=== PATIENT | female | born 1985 | race American Indian/Alaskan Native ===

== ENCOUNTER 2016-08-22 21:24 | Emergency (ER) | payer MEDICAID ==
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
[2016-08-23] MEDS ORDERED: TORADOL IM ONE (02:09)
[2016-08-23 03:13] VITALS: BP 120/64
== END 2016-08-23 03:18 | disposition home or self-care (01) ==
LOC: ED 21:24
DX: M54.2 Cervicalgia (principal); M54.9 Dorsalgia, unspecified; Z88.6 Allergy status to analgesic agent; V89.2XXA Person injured in unspecified motor-vehicle accident, traffic, initial encounter; Y93.89 Activity, other specified; Y99.8 Other external cause status; Y92.89 Other specified places as the place of occurrence of the external cause
CPT/HCPCS: 81025; 96372; 99282; J1885

== ENCOUNTER 2019-03-15 13:36 | Outpatient (CLI) | payer MEDICAID ==
[2019-03-15] MEDS ORDERED: LACTATED RINGERS 1,000 ML IV ONE (15:30)
--- NOTE | 2019-03-15 15:43 | Ultrasound Report ---
Limited OB ultrasound Biophysical profile INDICATION: Nonreactive NST. Evaluate RAYSHAWN. COMPARISON: None available. FINDINGS: A single live intrauterine is seen in cephalic presentation with a heart rate of 152 bpm. T he amniotic fluid index is normal, measuring 7.9 cm. The biophysical profile is 8/8. IMPRESSION: Single live intrauterine with a normal RAYSHAWN of 7.9 cm and biophysical profile of 8/8. Signer Name: Trav Jeter MD Signed: 03/15/2019 3:39 PM Workstation Name: [id number]
[2019-03-15 16:09] VITALS: BP 128/72
--- NOTE | 2019-03-15 17:10 | Progress Note ---
Assessment and Plan A: at 38 1/7 weeks gestation. No evidence of membrane rupture. Not in active labor. Normal BPP and RAYSHAWN. Active movement noted during US, during exam, and reported by patient. P: Consulted with Dr. Villar re: this patient. Dr. Villar states it is OK to discharge patient home and have her follow up here in L&D on Saturday03/17/19 for repeat BPP/RAYSHAWN. Hydrated patient with 1 liter of LR IV. Discussed with patient need to perform daily movement counting at home; technique for daily movement counting discussed. Advised patient she must come in right away if decrease in movements. Signs of labor and warning signs discussed in detail with patient. Encouraged patient to keep her scheduled follow up at [facility]. Patient voiced understanding of all instructions. Subjective - Subjective Date of service: 03/15/19 Principal diagnosis: R/O ROM Interval history: 33 year old presents at 38 weeks, 1 day gestation to rule out leaking of water. Patient states she has had some sort of discharge present for the past few days which made her underwear feel moist. She denies any gush or trickle. Pt. denies vaginal bleeding. Pt. states baby has been moving well. She has not been counting movements daily. Patient denies regular contractions. She denies falls or abdominal trauma. Patient sees [facility] for her care and she states she has a follow up visit this week. Patient reports: movement normal, no vaginal bleeding, no contractions Objective - Vital Signs Vital Signs: Vital Signs - 12hr 03/15/19 03/15/19 03/15/19 13:53 14:07 16:07 Temperature 98.7 F Pulse Rate 99 H 99 H 93 H Respiratory 18 Rate Blood Pressure 131/75 128/72 - Exam Narrative Exam: BPP 8/8. RAYSHAWN 7.9 cm. Speculum exam performed: no pooling, white vaginal discharge noted, negative nitrazine, negative fern test. Abdomen: Present: normal appearance, soft. Absent: distention, tenderness, guarding, rigidity Uterus: Present: normal, fundal height above umbilicus. Absent: tenderness FHR: category 1 Uterine Contraction Monitor Mode: External Cervical Dilatation: 0 Cervical Effacement Percentage: 30 station: -3 Uterine Contraction Pattern: Absent Extremities: normal
== END 2019-03-15 17:16 | disposition home or self-care (01) ==
LOC: TRG 13:36
PROVIDERS: ATTEND Obstetrics & Gynecology
DX: O42.92 Full-term premature rupture of membranes, unspecified as to length of time between rupture and onset of labor (principal); O26.893 Other specified pregnancy related conditions, third trimester; M54.5 Low back pain; Z3A.38 38 weeks gestation of pregnancy
CPT/HCPCS: 59025; 76815; 76819; 96360; J7120

== ENCOUNTER 2019-03-17 11:58 | Outpatient (CLI) | payer MEDICAID ==
[2019-03-17 12:34] VITALS: BP 117/72
--- NOTE | 2019-03-17 13:54 | Ultrasound Report ---
CLINICAL DATA: Low amniotic fluid, decreased movement TECHNICAL DATA: Document breath, motion, gestational age, tone, and fluid. FINDINGS: respiration, tone, and motion are well visualized and normal. Amniotic fluid volume is normal. Biophysical profile score is 8/8. heart rate is 138 bpm. IMPRESSION: The biophysical profile score is 8/8. Signer Name: Velma Reveles MD Signed: 03/17/2019 1:50 PM Workstation Name: [id number]
--- NOTE | 2019-03-17 13:56 | Ultrasound Report ---
Examination: Ultrasound Obstetrical Limited, INDICATION: Evaluate well being. Decreased movement COMPARISON: 03/15/2019 FINDINGS: There is a single living intrauterine with the head in the cephalic position. Amniotic flui d index measures 8.4 cm, which is within normal limits. The heart rate is 138 beats per minute. IMPRESSION: Viable IUP in a cephalic presentation with normal amniotic fluid volume. Signer Name: Velma Reveles MD Signed: 03/17/2019 1:51 PM Workstation Name: [id number]
== END 2019-03-17 14:27 | disposition home or self-care (01) ==
LOC: TRG 11:58
PROVIDERS: ATTEND Obstetrics & Gynecology
DX: O47.1 False labor at or after 37 completed weeks of gestation (principal); Z3A.38 38 weeks gestation of pregnancy
CPT/HCPCS: 76815; 76819

== ENCOUNTER 2019-03-29 14:23 | Inpatient (IN) | payer MEDICAID ==
[2019-03-29] MEDS ORDERED: FLAGYL PO ONE (16:00)
[2019-03-29] MEDS ORDERED: XYLOCAINE 2% INFILTRATI ONE (16:57)
[2019-03-29] MEDS ORDERED: BRETHINE SUB-Q PRN (16:57)
[2019-03-29] MEDS ORDERED: PITOCin/NS 20 UNIT/1000ML DRIP 20 UNITS/1,000 ML BAG IV SCH (17:00)
[2019-03-29] MEDS ORDERED: LACTATED RINGERS 1,000 ML IV SCH (17:00)
--- NOTE | 2019-03-29 17:09 | History and Physical Report ---
History of Present Illness Date of examination: 03/29/19 Date of admission: 03/29/2019 Chief complaint: Low RAYSHAWN at term (5.4 cm). History of present illness: 33 year old presents at 40 weeks, 1 day gestation with small amount of vaginal bleeding this morning; states it is pink and very small amount. Patient denies abdominal pain, falls, abdominal trauma, recent intercourse, or leaking of fluid. Patient reports active movement. US was performed in triage area which showed no signs of placental separation but did show a low RAYSHAWN of 5.4 cm and BPP 8/8. Patient received care at [facility] and records are available. LMP 06/21/18. EDC 03/28/19. 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 septo-optic dysplasia), patient declined MRI; SGA; co-managed with [facility]; history of preeclampsia with a previous ; late transfer of care from [place] to [facility] at 28 weeks gestation; + UDS at [place] on initial visit (+ THC); anemia (supplemented with iron). labs are as follows: O+, rubella and antibody screen unavailable (these have been drawn on admission), hepatitis B surface antigen negative, RPR nonreactive, HIV negative, hemoglobin electrophoresis negative, gonorrhea negative, chlamydia negative, diabetes screen 91, GBS negative, trichomonas negative. Past History Past Medical History: other (obesity, history of preeclampsia with a previous ) Past Surgical History: other (LEEP, cervical cone biopsy) [facility] History: abnormal PAP smear. denies: chlamydia, gonorrhea, hepatitis B, hepatitis C, herpes, HIV, syphilis, trichomonas Family/Genetic History: hypertension, other (sleep apnea) Social history: lives with family, smoking (positive for THC early in ; pt. has stopped), full code. denies: alcohol abuse, prescription drug abuse, IV drug use - Obstetrical History Expected Date of Delivery: 03/28/19 Actual Gestation: 40 Week(s) 1 Day(s) : 6 Para: 5 Hx # Term Pregnancies: 5 Number of Pregnancies: 0 Spontaneous Abortions: 0 Induced : 0 Number of Living Children: 5 Medications and Allergies Allergies Allergy/AdvReac Type Severity Reaction Status Date / Time morphine AdvReac Severe Hives Verified 03/17/19 12:10 Home Medications Medication Instructions Recorded Confirmed Last Taken Type Vit-Fe Fumar-FA [ 1 tab PO QDAY #90 tablet 03/04/15 03/29/19 Unknown Rx Vitamin] Active Meds: Active Medications Ephedrine Sulfate (Ephedrine Sulfate) 10 mg IV Q2M PRN PRN Reason: Hypotension Fentanyl (Sublimaze) 100 mcg IV Q2H PRN PRN Reason: Labor Pain Oxytocin/Sodium Chloride (Pitocin/Ns 20 Unit/1000ml Drip) 20 units in 1,000 mls @ 125 mls/hr IV DIRECT DARLENE Lactated Ringer's (Lactated Ringers) 1,000 mls @ 125 mls/hr IV DIRECT DARLENE Oxytocin/Sodium Chloride (Pitocin/Ns 30 Unit/500ml) 30 units in 500 mls @ 1 mls/hr IV TITR DARLENE; Protocol Terbutaline Sulfate (Brethine) 0.25 mg SUB-Q ONCE PRN PRN Reason: Hyperstimulation/Hypertonicity Review of Systems All systems: negative (pink discharge this morning when wiping and on pad) - Vital Signs Vital signs: Vital Signs Pulse BP 88 130/78 03/29/19 14:47 03/29/19 14:47 Temp Pulse Resp BP Pulse Ox 99.7 F H 88 17 130/78 03/29/19 15:06 03/29/19 14:47 03/29/19 15:06 03/29/19 14:47 - Physical Exam Cardiovascular: Regular rate, Normal S1, Normal S2, No murmurs Lungs: Positive: Clear to auscultation Abdomen: Positive: normal appearance, soft. Negative: distention, tenderness, guarding, rigidity Genitourinary (Female): Positive: normal external genitalia, normal perenium. N egative: perineal/vulvar lesions (no lesions seen on careful exam with bright light upon admission) Vagina: Positive: normal moisture, discharge (white discharge in posterior fornix) Uterus: Positive: enlarged. Negative: tender Anus/Rectum: Positive: normal perianal skin Extremities: Positive: normal. Negative: tenderness, edema - Obstetrical FHR: category 1 Uterine Contraction Monitor Mode: External Cervical Dilatation: 0 Cervical Effacement Percentage: 20 station: -4 Uterine Contraction Pattern: Irregular Uterine Contraction Intensity: Mild Results Result Diagrams: 03/29/19 17:40 03/29/19 17:41 All other labs normal. Assessment and Plan A: at 40 weeks, 1 day gestation. Low RAYSHAWN. GBS negative. brain abnormality detected on US (pt. declined MRI). SGA. Elevated blood pressures upon admission. Grand multipara. P: Admit. Continuous EFM. Preeclamptic labs. Serial BPs. NICU to attend delivery. records given to NICU charge nurse. Neuro consult for baby after delivery. Low dose Pitocin for cervical ripening and Pitocin induction of labor. Discussed with patient risks and benefits of Pitocin induction of labor. Patient consented to Pitocin induction of labor. Consulted with re: this patient due to elevated blood pressures and possible brain abnormality. OK to attempt vaginal per MD.
[2019-03-29 17:56] LABS: Hematocrit 34.2 % (30.3-42.9); Hemoglobin 11.5 gm/dl (10.1-14.3); Mean Corpuscular HGB Conc 34 % (30-34); Mean Corpuscular Volume 91 fl (79-97); Platelet Count 253 K/mm3 (140-440); Red Blood Count 3.77 M/mm3 (3.65-5.03); Red Cell Distribution Width 15.2 % (13.2-15.2)
[2019-03-29] MEDS ORDERED: PITOCin/NS 30 UNIT/500ML 30 UNITS/500 ML BAG IV SCH (18:00)
[2019-03-29 18:18] LABS: Alanine Aminotransferase 11 units/L (7-56); Albumin 3.6 g/dL (3.9-5); BUN/Creatinine Ratio 10; Blood Urea Nitrogen 4 mg/dL (7-17); Calcium 9.3 mg/dL (8.4-10.2); Hemolysis Index 1; Uric Acid 3.3 mg/dL (3.5-7.6)
--- NOTE | 2019-03-29 18:37 | Ultrasound Report ---
US OB BPP wo non-stress, US OB limited INDICATION / CLINICAL INFORMATION: Vaginal bleeding. COMPARISON: None available. FINDINGS: Single, viable intrauterine in cephalic presentation. heart rate 133. Placenta is fundal and right-sided, free of the cervical os. No evidence of abruption or other placen frank abnormalities. Amniotic fluid volume is abnormally decreased, with a fluid index of 5 cm. Biophysical profile tone: 2 breathin movement: 2 Amniotic fluid: 2 Total score: 8 IMPRESSION: 1. Single, viable intrauterine in cephalic presentation. 2. Decreased amniotic fluid volume. 3. Normal biophysical profile. Signer Name: Jatinder Hinds MD Signed: 03/29/2019 6:33 PM Workstation Name: [id number]
[2019-03-30] MEDS ORDERED: ZOFRAN IV PRN (01:52)
[2019-03-30] MEDS: SUBLIMAZE IV PRN ×2 (01:55→04:38)
[2019-03-30] MEDS ORDERED: TUCKS PAD TP PRN (07:03)
[2019-03-30] MEDS ORDERED: LANSINOH TP PRN (07:03)
--- NOTE | 2019-03-30 07:09 | Procedure Note ---
OB Delivery Note - Delivery Date of Delivery: 03/30/19 Surgeon: KAUSHAL MARISCAL Estimated blood loss: 200cc - Vaginal Delivery presentation: vertex Delivery position: OA Intrapartum events: none Delivery induction: oxytocin Delivery monitor: external FHT, external uterine Route of delivery: Delivery placenta: spontaneous Delivery cord: 3 umbilical vessels Episiotomy: none Delivery laceration: none Anesthesia: none Delivery comments: Spontaneous vaginal delivery at 06:45 of liveborn female infant weighing 7 lb. 2 oz. over intact perineum with apgars of 8/9. NICU team present for delivery. Baby delivered gently and easily; loose nuchal cord times 1, manually reduced. 3 vessel cord double clamped and cut and baby taken to radiant warmer for eval uation by NICU team. Spontaneous cry and respirations. Spontaneous delivery of intact placenta and membranes by blanc mechanism. EBL 200 cc. Pitocin to IV fluids after delivery of placenta. Fundus firm and midline. No lacerations noted. Vaginal sweep negative. Sponge count correct. Mother and baby stable in birthing room.
[2019-03-30] MEDS: IBUPROFEN PO SCH ×2 (07:24→14:09)
[2019-03-30] MEDS ORDERED: SODIUM CHLORIDE FLUSH SYRINGE 10 ML IV NR (08:00)
[2019-03-30] MEDS ORDERED: DULCOLAX PR PRN (10:00)
[2019-03-30] MEDS: TYLENOL PO PRN ×2 (11:45→17:35)
[2019-03-30 13:46] LABS: Amphetamine Screen,Urine PRESUMPTIVE NEGATIVE; Benzodiazepines Screen,Urine PRESUMPTIVE NEGATIVE; Cocaine Screen,Urine PRESUMPTIVE NEGATIVE; Methadone Screen,Urine PRESUMPTIVE NEGATIVE; Opiate Screen,Urine PRESUMPTIVE NEGATIVE
[2019-03-30 13:58] LABS: Cannabinoid Screen,Urine PRESUMPTIVE POSITIVE
[2019-03-30 19:45] LABS: Hematocrit 27.9 % (30.3-42.9); Hemoglobin 9.4 gm/dl (10.1-14.3)
[2019-03-30] MEDS ORDERED: MILK OF MAGNESIA PO PRN (22:00)
[2019-03-31] MEDS: FEOSOL PO SCH ×2 (10:01→22:14)
--- NOTE | 2019-03-31 10:14 | Progress Note ---
Assessment and Plan - Patient Problems (1) (normal spontaneous vaginal delivery) Current Visit: Yes Status: Acute Plan to address problem: Continue routine PP orders Anticipate d/c home in 24 hrs (2) Anemia Current Visit: Yes Status: Acute Qualifiers: Anemia type: other cause Other causes of anemia: acute posthemorrhagic Qualified Code(s): D62 - Acute posthemorrhagic anemia Plan to address problem: Asymptomatic Continue oral daily iron supplementation Increase iron rich foods into diet Subjective - Subjective Date of service: 03/31/19 Principal diagnosis: Interval history: See admission H & P, OB delivery summary and PP progress notes Patient reports: appetite normal, voiding normally, pain well controlled, flatus, ambulating normally, no bowel movement : doing well, bottle feeding (and ) Objective - Vital Signs Latest vital signs: Vital Signs Temp Pulse Resp BP BP Pulse Ox 03/31/19 08:00 98.9 F 80 20 138/89 03/30/19 23:30 98.4 F 66 18 134/79 03/30/19 19:30 98.4 F 74 19 132/74 03/30/19 16:29 98.2 F 86 18 131/91 99 03/30/19 12:40 98.7 F 86 18 135/87 99 Intake and Output 03/30/19 03/31/19 03/31/19 23:59 07:59 15:59 Intake Total 300 300 120 Output Total 300 Balance 0 300 120 Intake: Oral 120 Intake, Free Water 300 300 Output: Urine 300 Void 300 Other: Total, Intake Amount 120 Total, Output Amount 300 # Voids Void 1 1 - Exam Breasts: Present: normal Cardiovascular: Present: Regular rate Lungs: Present: Normal air movement Abdomen: Present: soft, normal bowel sounds Uterus: Present: firm, fundal height below umbilicus (U-1) Extremities: Present: normal Deep Tendon Reflex Grade: Normal +2 - Labs Labs: Abnormal lab results 03/30/19 Range/Units 19:34 Hgb 9.4 L (10.1-14.3) gm/dl Hct 27.9 L D (30.3-42.9) %
--- NOTE | 2019-03-31 10:17 | Discharge Summary ---
Providers - Providers Date of Admission: 03/29/19 17:00 Date of discharge: 04/01/19 (1200) Attending physician: NAOMI OLIVEROS MD Primary care physician: MARGE SANCHEZ MD Hospitalization Reason for admission: induction of labor, IUP at term Delivery: Episiotomy: none Laceration: none Other procedures: none complications: none Discharge diagnosis: IUP at term delivered, other (Anemia) [place] baby: female Hospital course: See admission H & P, OB delivery summary and PP progress notes Condition at discharge: Good Disposition: DC-01 TO HOME OR SELFCARE - Discharge Diagnoses (1) (normal spontaneous vaginal delivery) Status: Acute (2) Anemia Status: Acute Qualifiers: Anemia type: other cause Other causes of anemia: acute posthemorrhagic Qualified Code(s): D62 - Acute posthemorrhagic anemia Plan - Discharge Medications Prescriptions: Ferrous Sulfate [Feosol 325 MG tab] 325 mg PO BID 30 Days #60 tablet - Provider Discharge Summary Activity: routine, no sex for 6 weeks, no heavy lifting 4 weeks, no strenuous exercise Diet: other (Iron rich diet) Instructions: routine Additional instructions: [] Smoking cessation referral if applicable(refer to patient education folder for contact #) [] Refer to [facility]'s [facility] Booklet Call your doctor immediately for: * Fever > 100.5 * Heavy vaginal bleeding ( >1 pad per hour) * Severe persistent headache * Shortness of breath * Reddened, hot, painful area to leg or breast * Drainage or odor from incision. * Continue daily oral iron supplementation as directed - Follow up plan Follow up: PRIMARY CAREMD [Primary Care Provider] - 6 Weeks
[2019-03-31] MEDS: IBUPROFEN PO SCH ×2 (11:51→18:46)
[2019-04-01] MEDS: IBUPROFEN PO SCH ×2 (02:00→08:41)
[2019-04-01] MEDS ORDERED: BENADRYL PO ONE (02:03)
[2019-04-01] MEDS: FEOSOL PO SCH (10:29)
[2019-04-01 17:50] VITALS: BP 137/92
== END 2019-04-01 17:05 | disposition home or self-care (01) | DRG 775 ==
LOC: TRG 14:23 → LD 17:00 → OB 03-30 09:32
PROVIDERS: ADMIT Obstetrics & Gynecology; ATTEND Obstetrics & Gynecology
PROC: 3E033VJ Introduction of Other Hormone into Peripheral Vein, Percutaneous Approach (ICD-10-PCS; 2019-03-29)
PROC: 10E0XZZ Delivery of Products of Conception, External Approach (ICD-10-PCS; principal; 2019-03-30)
DX: O69.81X0 Labor and delivery complicated by cord around neck, without compression, not applicable or unspecified (principal); Z3A.40 40 weeks gestation of pregnancy; Z37.0 Single live birth; Z82.49 Family history of ischemic heart disease and other diseases of the circulatory system; Z88.5 Allergy status to narcotic agent; O99.03 Anemia complicating the puerperium; D62 Acute posthemorrhagic anemia; O99.324 Drug use complicating childbirth; F19.90 Other psychoactive substance use, unspecified, uncomplicated
CPT/HCPCS: 36415; 76815; 76819; 80053; 80307; 83615; 84550; 85014; 85018; 85027; 86592; 86762; 86850; 86900; 86901; G0378; J2405; J2590; J3010; J7120